=== PATIENT | female | born 1985 ===

== ENCOUNTER 2020-11-05 18:27 | Emergency (ER) | payer OTHER ==
[~2020-11-05] VITALS: Ht 170.2 cm; Wt 77.1 kg
--- NOTE | 2020-11-05 18:27 | NUR ---
pt bib [facility] 81 [facility], s/p ingestion of hand comedian. in er, pt says " I took hand comedian to get drunk and to have better. sex ". pt axox4, deneis any SI or harm to others
--- NOTE | 2020-11-05 18:40 | NUR ---
lapd in fascility to inquire about the pt.
--- NOTE | 2020-11-05 18:40 | NUR ---
Patient eloped from [facility]. physician notified. Addendum: 11/05/20 at 1909 by JORGE pt walks in steady gait and keeps saying she wants to go and have sex.
[2020-11-05] MEDS: IV NORMAL SALINE 1000 ML BAG IV ONE (19:05)
== END 2020-11-05 18:40 | disposition left against medical advice (07) ==
LOC: ER 18:27
DX: Z00.8 Encounter for other general examination (principal); F19.10 Other psychoactive substance abuse, uncomplicated
CPT/HCPCS: A4663